=== PATIENT | male | born 1985 | race Caucasian/White ===

== ENCOUNTER 2022-11-14 16:38 | Emergency (ER) | payer OTHER ==
[2022-11-14] MEDS ORDERED: Diphtheria,Pertussis(Acell),Tetanus Vaccine 0.5 ML Syringe IM ONE (17:17)
[2022-11-14] MEDS ORDERED: Mupirocin Oint 22 GM Tube TOP ONE (17:59)
== END 2022-11-14 18:18 | disposition home or self-care (01) ==
LOC: EDBD → DL.ED 16:38
DX: S81.831A Puncture wound without foreign body, right lower leg, initial encounter (principal); Z23 Encounter for immunization; W34.00XA Accidental discharge from unspecified firearms or gun, initial encounter
CPT/HCPCS: 73562; 90471; 90715; 99283; A9270